=== PATIENT | female | born 1975 | race Caucasian/White ===

== ENCOUNTER → 2017-02-06 | Outpatient (REF) | payer OTHER ==
[~2017-02-06] MED LIST: ZOFR4TAB3 PO
== END ==
LOC: M SFHCLERA 18:25
PROVIDERS: ATTEND Physician Assistant
DX: N30.00 Acute cystitis without hematuria (principal)

== ENCOUNTER 2017-02-08 00:03 | Emergency (ER) | payer OTHER ==
[~2017-02-08] VITALS: Ht 14 cm; Wt 88.2 kg
[2017-02-08] MEDS ORDERED: ONDANSETRON 4 MG ORAL DISINTEGRATING TAB (S0181) SL ONE (01:30)
[2017-02-08 01:31] VITALS: BP_DIAS 95
[2017-02-08] MEDS ORDERED: ZOFR4TAB3 PO (02:12)
[2017-02-08] MEDS ORDERED: CIPROFLOXACIN 500 MG TAB PO ONE (02:15)
[2017-02-08 02:45] VITALS: BP_SYST 142
[2017-02-08] MEDS ORDERED: PHENAZOPYRIDINE 100 MG TAB PO ONE (02:45)
== END 2017-02-08 02:46 | disposition home or self-care (01) ==
LOC: M ED 00:03
DX: N30.90 Cystitis, unspecified without hematuria (principal); R11.10 Vomiting, unspecified; Z91.14 Patient's other noncompliance with medication regimen

== ENCOUNTER → 2017-03-22 | Outpatient (CLI) | payer OTHER ==
--- NOTE | 2017-03-22 19:33 | REP ---
Soft-tissue ultrasound right leg: History: Right lower leg incision with pain and swelling. Question seroma versus abscess. Pain and fluctuance at this site. The patient gives a history of prior fasciotomy, February 02, 2017. Findings: At the time of the study, the patient reports that the swelling and pain are gone. A small amount of swelling is described near the ankle. Sonography in the region of the horan scar laterally shows a very small elongate fluid collection measuring 1.2 x 0.3 x 0.6 cm. This could be a small hematoma seroma. No other abnormality. Signed by Farshad Love MD 03/22/2017 08:04 P
== END ==
LOC: M LRY 14:06
PROVIDERS: ATTEND Family Medicine
DX: M79.A22 Nontraumatic compartment syndrome of left lower extremity (principal); R60.0 Localized edema

== ENCOUNTER → 2017-06-01 | Outpatient (REF) | payer OTHER | LOC: M SFHCLERA 18:49 | PROVIDERS: ATTEND Nurse Practitioner Family | DX: R30.0 Dysuria (principal) ==

== ENCOUNTER → 2017-09-24 | Outpatient (REF) | payer OTHER | LOC: M SFHCLERA 10:20 | DX: L30.8 Other specified dermatitis (principal) | CPT/HCPCS: 88305 ==